=== PATIENT | female | born 1990 | race Caucasian/White ===

== ENCOUNTER 2018-05-28 08:32 | Inpatient (IN) | payer BC ==
[2018-05-28] MEDS ORDERED: CARBOPROST 250 MCG INJ IM ×2 (09:00→11:30)
[2018-05-28] MEDS ORDERED: METHYLERGONOVINE 0.2 MG INJ IM ×2 (09:00→11:30)
[2018-05-28] MEDS ORDERED: MISOPROSTOL 200 MCG TAB PR ×2 (09:00→11:30)
[2018-05-28] MEDS ORDERED: OXYTOCIN 30 UNITS/LR 500 ML IV ×3 (09:00→11:30)
[2018-05-28 09:14] LABS: ADD MAN DIFF? NO
[2018-05-28 09:18] LABS: WHITE BLOOD COUNT 13.2 10^3/ul (4.8-10.8)
[2018-05-28 09:18] LABS: BASOPHILS % 0.3 % (0.0-2.0); EOSINOPHILS # 0.3 10^3/ul (0.0-0.5); HEMATOCRIT 33.8 % (37.0-47.0); HEMOGLOBIN 11.2 g/dl (12.0-16.0); LYMPHOCYTES # 2.9 10^3/ul (0.8-2.9); LYMPHOCYTES % 22.1 % (15.0-51.0); MEAN CORPUSCULAR HEMOGLOBIN 29.5 pg (29.0-33.0); MEAN CORPUSCULAR HGB CONC 33.1 g/dl (32.0-37.0); MEAN CORPUSCULAR VOLUME 88.9 fl (82.0-101.0); MEAN PLATELET VOLUME 9.7 fl (7.4-10.4); MONOCYTE # 0.8 10^3/ul (0.3-0.9); MONOCYTES % 6.2 % (0.0-11.0); NEUTROPHIL # 9.1 10^3/ul (1.6-7.5); NEUTROPHILS % 68.8 % (39.0-77.0); PLATELET COUNT 272 10^3/UL (140-415); RED CELL DISTRIBUTION WIDTH 13.5 % (11.5-14.5)
[2018-05-28 09:38] LABS: INR 0.98; PROTIME 13.1 Sec (11.9-14.9)
[2018-05-28 09:39] LABS: PARTIAL THROMBOPLASTIN TIME 28.3 Sec (23.0-35.0)
[2018-05-28] MEDS: LACTATED RINGER'S 1,000 ML IV ×3 (10:03→23:45)
[2018-05-28] MEDS: AMPICILLIN 2 GM/NS (PMX) 100 ML IV (10:03)
[2018-05-28 10:15] LABS: HEPATITIS B SURFACE ANTIGEN NEGATIVE (NEGATIVE)
[2018-05-28] MEDS ORDERED: morphine SULFATE/PF (10 MG/10 ML) INJ (11:04)
[2018-05-28] MEDS ORDERED: BUPIVACAINE 0.75%/DEXT (SPINAL) 2 ML INJ (11:04)
[2018-05-28] MEDS ORDERED: NA PHOSPHATE/BIPHOS 133 ML ENEMA PR (11:30)
[2018-05-28] MEDS ORDERED: METHYLERGONOVINE 0.2 MG TAB PO (11:30)
[2018-05-28] MEDS: CEFAZOLIN 2 GM/50 ML (PMX) 50 ML IVPB ×2 (11:33→19:49)
[2018-05-28] MEDS ORDERED: MIDAZOLAM 1 MG/ML 2 ML INJ ×3 (11:38→11:50)
[2018-05-28] MEDS ORDERED: METOCLOPRAMIDE 10 MG INJ (11:38)
[2018-05-28] MEDS ORDERED: ONDANSETRON 4 MG INJ (11:38)
[2018-05-28] MEDS ORDERED: OXYTOCIN 10 UNIT INJ (11:39)
[2018-05-28] MEDS ORDERED: FENTAnyl 50 MCG/ML VIAL ×2 (11:45→12:04)
[2018-05-28] MEDS ORDERED: KETOROLAC 30 MG INJ (12:11)
[2018-05-28] MEDS ORDERED: AZITHROMYCIN 500MG/NS (PMX) 250 ML (12:12)
[2018-05-28] MEDS ORDERED: ZOLPIDEM 5 MG TAB PO (12:30)
[2018-05-28] MEDS ORDERED: KETOROLAC 30 MG INJ IV (12:30)
[2018-05-28] MEDS ORDERED: DIPHENHYDRAMINE 50 MG INJ IV ×2 (12:30)
[2018-05-28] MEDS ORDERED: MIDAZOLAM 1 MG/ML 2 ML INJ IV (12:30)
[2018-05-28] MEDS ORDERED: MEPERIDINE 25 MG INJ IV (12:30)
[2018-05-28] MEDS ORDERED: HYDROmorphONE 0.5 MG/0.5 ML SYG IV ×2 (12:30)
[2018-05-28] MEDS ORDERED: NALBUPHINE HCL (10 MG/1 ML) INJ IV (12:30)
[2018-05-28] MEDS ORDERED: NALOXONE (0.4 MG/ML) INJ IV (12:30)
[2018-05-28] MEDS: ONDANSETRON 4 MG INJ IV (12:56)
[2018-05-28] MEDS: OXYTOCIN 30 UNITS/LR 500 ML IV ×2 (13:00→14:31)
[2018-05-28] MEDS ORDERED: IBUPROFEN 800 MG TAB PO (14:00)
[2018-05-28] MEDS: PROMETHAZINE 25 MG TAB PO (14:27)
[2018-05-28 15:16] LABS: RAPID PLASMA REAGIN NONREACTIVE (NR)
[2018-05-28] MEDS: SENNA/DOCUSATE NA (8.6MG/50MG) TAB PO (21:29)
[2018-05-28] MEDS: KETOROLAC 30 MG INJ IV (23:30)
[2018-05-28] MEDS: LANOLIN HPA 1 PKT TOP (23:50)
[2018-05-29] MEDS: CEFAZOLIN 2 GM/50 ML (PMX) 50 ML IVPB (04:01)
[2018-05-29] MEDS: KETOROLAC 30 MG INJ IV ×4 (06:05→19:01)
[2018-05-29 08:05] LABS: ADD MAN DIFF? NO
[2018-05-29 08:09] LABS: WHITE BLOOD COUNT 12.9 10^3/ul (4.8-10.8)
[2018-05-29 08:09] LABS: BASOPHILS % 0.2 % (0.0-2.0); EOSINOPHILS # 0.2 10^3/ul (0.0-0.5); EOSINOPHILS % 1.8 % (0.0-7.0); HEMATOCRIT 30.8 % (37.0-47.0); HEMOGLOBIN 10.1 g/dl (12.0-16.0); LYMPHOCYTES # 2.9 10^3/ul (0.8-2.9); LYMPHOCYTES % 22.5 % (15.0-51.0); MEAN CORPUSCULAR HEMOGLOBIN 29.6 pg (29.0-33.0); MEAN CORPUSCULAR HGB CONC 32.8 g/dl (32.0-37.0); MEAN CORPUSCULAR VOLUME 90.3 fl (82.0-101.0); MONOCYTES % 8.1 % (0.0-11.0); NEUTROPHIL # 8.6 10^3/ul (1.6-7.5); NEUTROPHILS % 66.9 % (39.0-77.0); PLATELET COUNT 265 10^3/UL (140-415); RED BLOOD COUNT 3.41 10^6/ul (4.20-5.40); RED CELL DISTRIBUTION WIDTH 13.7 % (11.5-14.5)
[2018-05-29] MEDS: SENNA/DOCUSATE NA (8.6MG/50MG) TAB PO ×2 (09:18→21:14)
[2018-05-29] MEDS: LACTATED RINGER'S 1,000 ML IV (09:20)
[2018-05-29] MEDS: HYDROCODONE/APAP (5/325) TAB PO (11:54)
[2018-05-29] MEDS: BISACODYL (EC) 5 MG TAB PO (17:45)
[2018-05-29] MEDS: IBUPROFEN 800 MG TAB PO (22:41)
[2018-05-30] MEDS: IBUPROFEN 800 MG TAB PO ×3 (06:09→21:36)
[2018-05-30] MEDS: SENNA/DOCUSATE NA (8.6MG/50MG) TAB PO ×2 (09:40→21:36)
[2018-05-30] MEDS: HYDROCODONE/APAP (5/325) TAB PO (14:14)
[2018-05-31] MEDS: HYDROCODONE/APAP (5/325) TAB PO (04:04)
[2018-05-31] MEDS: IBUPROFEN 800 MG TAB PO ×2 (05:37→13:41)
[2018-05-31] MEDS: SENNA/DOCUSATE NA (8.6MG/50MG) TAB PO (09:00)
[2018-05-31] MEDS: MEASLES,MUMPS,RUBELLA VACCINE INJ SC* (09:00)
[2018-05-31] MEDS: DIPHTH/TET/ACEL PERTUSS (ADULT) 0.5 ML VIAL IM* (13:42)
== END 2018-05-31 18:30 | disposition home or self-care (01) | DRG 787 ==
LOC: OBT 08:32 → L-D 08:32 → OBT 08:50 → L-D 08:50 → PP1 15:11
PROVIDERS: Obstetrics & Gynecology
PROC: 10D00Z1 Extraction of Products of Conception, Low, Open Approach (ICD-10-PCS; principal; 2018-05-28 11:00)
DX: O75.82 Onset (spontaneous) of labor after 37 completed weeks of gestation but before 39 completed weeks gestation, with delivery by (planned) cesarean section (principal); D62 Acute posthemorrhagic anemia; O34.219 Maternal care for unspecified type scar from previous cesarean delivery; O99.824 Streptococcus B carrier state complicating childbirth; O90.81 Anemia of the puerperium; G89.18 Other acute postprocedural pain; Z37.0 Single live birth; Z3A.38 38 weeks gestation of pregnancy; Z23 Encounter for immunization
CPT/HCPCS: 85025; 85610; 85730; 86592; 86850; 86900; 86901; 87340; 90715; 99464